=== PATIENT | female | born 1955 | race Caucasian/White ===

== ENCOUNTER → 2017-09-26 | Outpatient (CLI) | payer OTHER | LOC: LAB SHORT 13:51 → LAB SRC 13:51 | PROVIDERS: Registered Nurse | DX: Z12.4 Encounter for screening for malignant neoplasm of cervix (principal) | CPT/HCPCS: 87624; G0123 ==

== ENCOUNTER → 2020-12-16 | Outpatient (CLI) | payer MEDICARE ==
[~2020-12-16] MED LIST: Calcium + Vita1 EACH PO; DILT120ERA PO; ESOM20 PO; FIBER GUMMIES1 EACH PO; LEVO-T50 MCG PO; LOSA50 PO; MONT10T PO; Multiple Vitam1 EACH PO; NUVIGIL50 MG PO; VALA500 PO
[2020-12-23 09:46] LABS: Stool Occult Bld Immuno 1 Negative (NEGATIVE)
== END | disposition home or self-care (01) ==
LOC: LAB SHORT 09:15 → LAB 09:15
PROVIDERS: Registered Nurse
DX: Z12.11 Encounter for screening for malignant neoplasm of colon (principal)
CPT/HCPCS: 82274

== ENCOUNTER → 2023-08-01 | Outpatient (CLI) | payer OTHER | LOC: LAB SHORT 08:27 → PLD 08:27 | DX: L57.0 Actinic keratosis (principal); L85.8 Other specified epidermal thickening | CPT/HCPCS: 88305 ==

== ENCOUNTER → 2024-02-14 | Outpatient (CLI) | payer OTHER ==
[2024-02-17 13:09] LABS: Stool Occult Bld Immuno 1 Positive (NEGATIVE)
== END ==
LOC: LAB SHORT 16:19 → LAB 16:19
PROVIDERS: Registered Nurse
DX: Z12.11 Encounter for screening for malignant neoplasm of colon (principal); Z12.12 Encounter for screening for malignant neoplasm of rectum
CPT/HCPCS: G0328